=== PATIENT | female | born 1940 | race Caucasian/White ===

== ENCOUNTER → 2016-12-22 | Outpatient (CLI) | payer MEDICARE, BC ==
[~2016-12-22] MED LIST: ADVAIR HFA1 AER IH; ALBUTEROL0.83 MG/ML IH; AMBIEN 5MG TABLE5 MG PO; ASPIRIN 81M81 MG/TA2 PO; ASPIRIN E.C. 8181 MG PO; ATIVAN0.5 MG PO; AVAPRO150 MG PO; BROVANA15 MCG/2 M IH; BYSTOLIC5 MG PO; CALCIUM1 CAP PO; CALCIUM500 MG PO; CALTRATE-600 W600 MG PO; CARTIA XT180 MG PO; CELEXA40 MG PO; COZAAR 50MG50 MG/TAB PEG; CYMBALTA 30MG30 MG PO; CYMBALTA 60MG60 MG PO; DIOVAN80 MG PO; DISALCID PO; DYAZIDE 25 MG-31 CAP PO; FISH OIL CONC1000 MG PO; FISH OIL500 MG PO; FLEXERIL5 MG PO; FLONASE NASAL S16 GM NS; FLONASEALLERGY NS; FLOVENT HF0.044 MG/A IH; LINZESS290CAP; LIPITOR 10MG10 MG PO; LIPITOR 40MG TA40 MG PO; LIVALO2 MG PO; LYRICA 25MG CAP25 MG PO; MASON NATURAL1200 MG PO; MAXZIDE-25MG TA1 TAB PO; MILK OF MA400 MG/5 M PO; MUCINEX 60600 MG/TA1 PO; MULTIPLE VITAMI1 CTB PO; MVI; NORCO 325 MG-51 TAB PO; NORVASC 10MG10 MG PO; PRAVACHOL 40MG40 MG PO; PREDNISONE10 MG PO; PREDNISONE20 MG PO; PRILOSEC 20MG20 MG PO; PULMICORT R1 MG/2 ML IH; PYRIDIUM 100MG100 MG PO; SEPTRA DS 8001 TAB PO; SINGULAIR 110 MG/TAB PO; SINGULAIR10 MG PO; TRIAMTERENE/HCT1 CAP PO; TRIAMTERENE/HCT1 TAB PO; TUDORZA IH; VITAMIN B12; VITAMIN C500 MG PO; VITAMIN D1000 IU PO; VITAMIN D3400 IU PO; ZANTAC 150MG T150 MG PO; ZITHROMAX 250M250 MG PO; ZITHROMAX TRI-500 MG PO; ZOFRAN 4MG T4 MG/TAB PO; ZOFRAN ODT4 MG PO; ZOLPIDEM5 MG PO
== END ==
LOC: COL.RAD 09:33
DX: K76.0 Fatty (change of) liver, not elsewhere classified (principal); K82.4 Cholesterolosis of gallbladder

== ENCOUNTER → 2017-01-07 | Outpatient (CLI) | payer MEDICARE, BC | LOC: COL.RAD 08:55 | DX: R10.11 Right upper quadrant pain (principal); K59.09 Other constipation | CPT/HCPCS: A9537; J2805 ==

== ENCOUNTER 2017-03-23 19:04 | Emergency (ER) | payer MEDICARE, BC ==
[~2017-03-23] VITALS: Ht 154.9 cm; Wt 63.6 kg
[~2017-03-23 19:04] MED LIST changes: -LINZESS290CAP; -LIVALO2 MG PO; -PRILOSEC 20MG20 MG PO
[2017-03-23 19:06] VITALS: TEMP 98.6
[2017-03-23] MEDS ORDERED: LINZESS290CAP (19:27)
[2017-03-23] MEDS ORDERED: PRILOSEC 20MG20 MG PO (19:28)
[2017-03-23] MEDS ORDERED: LIVALO2 MG PO (19:28)
[2017-03-23] MEDS ORDERED: MAXZIDE-25MG TA1 TAB PO (19:29)
[2017-03-23 20:00] LABS: PH 6 (5-8); SQUAMOUS EPITHELIAL 0-2 /hpf; URINE APPEARANCE Clear; URINE BACTERIA None Seen /hpf; URINE BILIRUBIN Negative (NEGATIVE); URINE BLOOD Negative (NEGATIVE); URINE COLOR Yellow; URINE GLUCOSE 3+ (NEGATIVE); URINE KETONE Negative (NEGATIVE); URINE RBC 0-2 /hpf; URINE UROBILINOGEN Negative (NEGATIVE); URINE WBC 0-2 /hpf
[2017-03-23 20:11] LABS: BASO # 0.1 (0.0-0.2); BASO % 0.7 % (0.0-2.0); EOS # 0.1 (0.0-0.7); EOS % 0.7 % (0-4.0); GRAN % 58.7 % (42.2-75.2); HEMATOCRIT 44.4 % (37.0-47.0); HEMOGLOBIN 15.6 g/dl (12.5-16.0); LYMPH # 2.6 (1.2-3.4); LYMPH % 30.2 % (20.0-51.0); MEAN CELL VOLUME 90 fl (80.0-100.0); MEAN CORPUSCULAR HEMOGLOBIN 32 pg (27.0-31.0); MEAN CORPUSCULAR HGB CONC 35 g/dl (33.0-37.0); MEAN PLATELET VOLUME 10.4 fl (7.4-10.4); MONO # 0.8 (0.1-0.6); MONO % 9.2 % (1.7-9.3); PLATELET COUNT 327 K/mm3 (130-400); RED BLOOD COUNT 4.94 M/mm3 (4.10-5.30); REDCELL DISTRIBUTION WIDTH-CV 12.5 % (11.5-14.5); WHITE BLOOD COUNT 8.5 K/mm3 (4.8-10.8)
[2017-03-23 20:21] LABS: ADJUSTED CALCIUM 9.3 mg/dL (8.4-10.2); ALBUMIN 4.2 gm/dL (3.5-5.0); BILIRUBIN,TOTAL 0.8 mg/dL (0.0-1.0); CALCIUM 9.5 mg/dL (8.4-10.2); CREATININE, serum 0.76 mg/dL (0.52-1.25); POTASSIUM 3.7 mmol/L (3.4-5.0); TOTAL PROTEIN 7.5 gm/dL (6.4-8.2)
[2017-03-23] MEDS ORDERED: NORCO 325 MG-51 TAB PO (20:52)
[2017-03-23] MEDS ORDERED: ZOFRAN ODT4 MG PO (21:01)
[2017-03-23 21:17] VITALS: BP 176/94; PULSE 63
== END 2017-03-23 21:18 | disposition home or self-care (01) ==
LOC: COL.ER 19:04
PROVIDERS: Nurse Practitioner
DX: M54.41 Lumbago with sciatica, right side (principal); I10 Essential (primary) hypertension; J44.9 Chronic obstructive pulmonary disease, unspecified; J45.909 Unspecified asthma, uncomplicated; Z87.891 Personal history of nicotine dependence
CPT/HCPCS: J1170; J2405

== ENCOUNTER 2017-03-28 18:53 | Emergency (ER) | payer MEDICARE, BC ==
[~2017-03-28] VITALS: Ht 154.9 cm; Wt 63.6 kg
[~2017-03-28 18:53] MED LIST changes: +LINZESS290CAP; +LIVALO2 MG PO; +PRILOSEC 20MG20 MG PO
[2017-03-28 19:23] VITALS: BP 151/71; TEMP 97.6
[2017-03-28 21:45] VITALS: PULSE 61
== END 2017-03-28 21:46 | disposition home or self-care (01) ==
LOC: COL.ER 18:53
DX: M54.5 Low back pain (principal); M54.16 Radiculopathy, lumbar region; I10 Essential (primary) hypertension
CPT/HCPCS: J1170

== ENCOUNTER → 2017-06-21 | Outpatient (CLI) | payer MEDICARE, BC | LOC: MC.RAD 08:00 | DX: Z12.31 Encounter for screening mammogram for malignant neoplasm of breast (principal) ==

== ENCOUNTER → 2017-07-26 | Outpatient (CLI) | payer MEDICARE, BC | LOC: SUN.DIA 09:00 | DX: E11.9 Type 2 diabetes mellitus without complications (principal); E78.5 Hyperlipidemia, unspecified; I10 Essential (primary) hypertension; Z68.26 Body mass index [BMI] 26.0-26.9, adult; Z71.3 Dietary counseling and surveillance; Z87.891 Personal history of nicotine dependence | CPT/HCPCS: G0108 ==

== ENCOUNTER → 2017-08-10 | Outpatient (CLI) | payer MEDICARE, BC | LOC: SUN.DIA 13:14 | DX: E11.9 Type 2 diabetes mellitus without complications (principal); E78.5 Hyperlipidemia, unspecified; I10 Essential (primary) hypertension; Z68.26 Body mass index [BMI] 26.0-26.9, adult; Z71.3 Dietary counseling and surveillance; Z87.891 Personal history of nicotine dependence ==

== ENCOUNTER → 2017-11-16 | Outpatient (CLI) | payer MEDICARE, BC | LOC: SUN.DIA 08-25 10:22 | DX: E11.9 Type 2 diabetes mellitus without complications (principal); E78.5 Hyperlipidemia, unspecified; I10 Essential (primary) hypertension; Z68.25 Body mass index [BMI] 25.0-25.9, adult; Z71.3 Dietary counseling and surveillance; Z87.891 Personal history of nicotine dependence ==

== ENCOUNTER → 2018-03-08 | Outpatient (CLI) | payer MEDICARE, BC | LOC: SUN.DIA 08:36 | DX: E11.9 Type 2 diabetes mellitus without complications (principal); E78.5 Hyperlipidemia, unspecified; I10 Essential (primary) hypertension; Z68.25 Body mass index [BMI] 25.0-25.9, adult; Z71.3 Dietary counseling and surveillance; Z87.891 Personal history of nicotine dependence ==

== ENCOUNTER 2018-04-11 10:59 | Emergency (ER) | payer MEDICARE, BC ==
[2018-04-11 11:06] VITALS: TEMP 97.6
[2018-04-11] MEDS ORDERED: GLUCOPHAGE500 MG/TAB PO (11:34)
[2018-04-11] MEDS ORDERED: BROVANA15 MCG/2 M IH (11:36)
[2018-04-11] MEDS ORDERED: PULMICORT R1 MG/2 ML IH (11:36)
[2018-04-11 13:37] VITALS: BP 158/68; PULSE 48
== END 2018-04-11 13:37 | disposition home or self-care (01) ==
LOC: COL.ER 10:59
DX: S61.217A Laceration without foreign body of left little finger without damage to nail, initial encounter (principal); S20.211A Contusion of right front wall of thorax, initial encounter; R40.2412 Glasgow coma scale score 13-15, at arrival to emergency department; I10 Essential (primary) hypertension; Z23 Encounter for immunization; Z90.710 Acquired absence of both cervix and uterus; Z79.82 Long term (current) use of aspirin; Z79.84 Long term (current) use of oral hypoglycemic drugs; W17.89XA Other fall from one level to another, initial encounter; W25.XXXA Contact with sharp glass, initial encounter

== ENCOUNTER → 2018-04-22 | Outpatient (CLI) | payer MEDICARE, BC ==
[~2018-04-22] MED LIST changes: +GLUCOPHAGE500 MG/TAB PO
== END ==
LOC: COL.CARD 08:19
DX: R00.1 Bradycardia, unspecified (principal); R03.0 Elevated blood-pressure reading, without diagnosis of hypertension

== ENCOUNTER 2018-05-23 07:43 | Outpatient (CLI) | payer MEDICARE, BC ==
[~2018-05-23] VITALS: Ht 154.9 cm; Wt 61.0 kg
[2018-05-23 08:23] VITALS: BP 140/68; PULSE 48; TEMP 97.6
[2018-05-23] MEDS ORDERED: MAXZIDE-25MG TA1 TAB PO (08:34)
[2018-05-23] MEDS ORDERED: COLACE 100100 MG/CAP PO (08:35)
[2018-05-23] MEDS ORDERED: CEPHALEXIN500 M1 PO (10:05)
== END 2018-05-23 10:45 | disposition home or self-care (01) ==
LOC: COL.CAR 07:43
DX: I49.5 Sick sinus syndrome (principal); I10 Essential (primary) hypertension; J45.909 Unspecified asthma, uncomplicated; F32.9 Major depressive disorder, single episode, unspecified; M10.9 Gout, unspecified; E78.5 Hyperlipidemia, unspecified; G47.33 Obstructive sleep apnea (adult) (pediatric); M19.90 Unspecified osteoarthritis, unspecified site; I25.10 Atherosclerotic heart disease of native coronary artery without angina pectoris; I35.9 Nonrheumatic aortic valve disorder, unspecified; Z90.710 Acquired absence of both cervix and uterus; Z79.82 Long term (current) use of aspirin; Z79.84 Long term (current) use of oral hypoglycemic drugs; Z87.891 Personal history of nicotine dependence; Z82.3 Family history of stroke; Z82.49 Family history of ischemic heart disease and other diseases of the circulatory system
CPT/HCPCS: 27124; C1764

== ENCOUNTER → 2018-09-14 | Outpatient (CLI) | payer MEDICARE, BC ==
[~2018-09-14] MED LIST changes: +CEPHALEXIN500 M1 PO; +COLACE 100100 MG/CAP PO
== END ==
LOC: SUN.DIA 09-08 13:33
DX: E11.9 Type 2 diabetes mellitus without complications (principal); E78.5 Hyperlipidemia, unspecified; I10 Essential (primary) hypertension; F17.210 Nicotine dependence, cigarettes, uncomplicated

== ENCOUNTER 2018-10-27 15:48 | Emergency (ER) | payer MEDICARE, BC ==
[~2018-10-27] VITALS: Ht 154.9 cm; Wt 59.1 kg
[2018-10-27 15:50] VITALS: TEMP 98.1
[2018-10-27 16:43] LABS: BASO # 0.1 (0.0-0.2); EOS # 0.1 (0.0-0.7); EOS % 0.7 % (0-4.0); GRAN # 3.5 (1.4-6.5); GRAN % 49.5 % (42.2-75.2); HEMATOCRIT 41.4 % (37.0-47.0); HEMOGLOBIN 14.3 g/dl (12.5-16.0); LYMPH # 2.8 (1.2-3.4); LYMPH % 39.4 % (20.0-51.0); MEAN CELL VOLUME 92 fl (80.0-100.0); MEAN CORPUSCULAR HEMOGLOBIN 32 pg (27.0-31.0); MEAN CORPUSCULAR HGB CONC 35 g/dl (33.0-37.0); MEAN PLATELET VOLUME 10.4 fl (7.4-10.4); MONO # 0.7 (0.1-0.6); MONO % 9.3 % (1.7-9.3); PLATELET COUNT 307 K/mm3 (130-400); REDCELL DISTRIBUTION WIDTH-CV 12.4 % (11.5-14.5)
[2018-10-27 16:45] LABS: PROTHROMBIN TIME 11.3 SECONDS (9.7-12.8)
[2018-10-27 16:49] LABS: ALANINE AMINOTRANSFERASE 23 U/L (9-52); ALBUMIN 4.2 gm/dL (3.5-5.0); ALKALINE PHOSPHATASE 89 U/L (50-136); ANION GAP 8 mmol/L (7-16); AST,SGOT 25 U/L (15-37); BILIRUBIN,TOTAL 0.4 mg/dL (0.0-1.0); BLOOD UREA NITROGEN 19 mg/dL (7-17); CARBON DIOXIDE 30 mmol/L (22-30); CHLORIDE 108 mmol/L (98-107); CREATININE, serum 0.92 mg/dL (0.52-1.25); GLUCOSE 108 mg/dL (74-106); POTASSIUM 4.4 mmol/L (3.4-5.0); SODIUM 145 mmol/L (137-145); TOTAL PROTEIN 7.3 gm/dL (6.4-8.2)
[2018-10-27] MEDS ORDERED: TUDORZA IH (16:51)
[2018-10-27 17:00] LABS: TROPONIN-I < 0.012 ng/mL (0.000-0.034)
[2018-10-27 19:34] VITALS: BP 105/74; PULSE 44
== END 2018-10-27 20:08 | disposition home or self-care (01) ==
LOC: COL.ER 15:48
PROVIDERS: Emergency Medicine
DX: R07.89 Other chest pain (principal); F41.9 Anxiety disorder, unspecified; E78.5 Hyperlipidemia, unspecified; E11.9 Type 2 diabetes mellitus without complications; I10 Essential (primary) hypertension; Z90.710 Acquired absence of both cervix and uterus; Z79.82 Long term (current) use of aspirin; Z79.84 Long term (current) use of oral hypoglycemic drugs
CPT/HCPCS: J2060; J7040

== ENCOUNTER 2019-02-25 17:47 | Emergency (ER) | payer MEDICARE, BC ==
[~2019-02-25] VITALS: Ht 154.9 cm; Wt 61.8 kg
[2019-02-25 17:50] VITALS: BP 117/64; TEMP 96.4
[2019-02-25 19:14] LABS: BASO # 0.1 (0.0-0.2); BASO % 0.7 % (0.0-2.0); EOS # 0.2 (0.0-0.7); GRAN # 4.2 (1.4-6.5); GRAN % 54.7 % (42.2-75.2); HEMOGLOBIN 12.5 g/dl (12.5-16.0); LYMPH # 2.6 (1.2-3.4); LYMPH % 33.2 % (20.0-51.0); MEAN CELL VOLUME 91 fl (80.0-100.0); MEAN CORPUSCULAR HEMOGLOBIN 31 pg (27.0-31.0); MEAN CORPUSCULAR HGB CONC 34 g/dl (33.0-37.0); MEAN PLATELET VOLUME 9.9 fl (7.4-10.4); MONO # 0.7 (0.1-0.6); MONO % 9.1 % (1.7-9.3); PLATELET COUNT 356 K/mm3 (130-400); RED BLOOD COUNT 4.02 M/mm3 (4.10-5.30); REDCELL DISTRIBUTION WIDTH-CV 12.7 % (11.5-14.5)
[2019-02-25 19:15] LABS: HEMATOCRIT 36.4 % (37.0-47.0)
[2019-02-25 19:26] LABS: ALBUMIN 3.7 gm/dL (3.5-5.0); BILIRUBIN,TOTAL 0.3 mg/dL (0.0-1.0); C-REACTIVE PROTEIN 4.9 mg/dL (0.0-0.9); CALCIUM 9.7 mg/dL (8.4-10.2); CREATININE, serum 1.29 (0.52-1.25); POTASSIUM 3.8 mmol/L (3.4-5.0); TOTAL PROTEIN 6.8 gm/dL (6.4-8.2)
[2019-02-25 19:28] LABS: COLLECTION METHOD CLEAN CATCH
[2019-02-25 19:47] LABS: PH 5 (5-8); SQUAMOUS EPITHELIAL 0-2 /hpf; URINE APPEARANCE Clear; URINE BACTERIA None Seen /hpf; URINE BILIRUBIN Negative (NEGATIVE); URINE BLOOD Negative (NEGATIVE); URINE COLOR Yellow; URINE GLUCOSE Negative (NEGATIVE); URINE KETONE Negative (NEGATIVE); URINE LEUKOCYTE ESTERASE Trace (NEGATIVE); URINE NITRATE Negative (NEGATIVE); URINE PROTEIN(semi-quant) Negative (NEGATIVE); URINE RBC 0-2 /hpf; URINE UROBILINOGEN Negative (NEGATIVE)
[2019-02-25 20:18] VITALS: PULSE 56
== END 2019-02-25 20:18 | disposition home or self-care (01) ==
LOC: COL.ER 17:47
PROVIDERS: Emergency Medicine
DX: M25.552 Pain in left hip (principal); E11.9 Type 2 diabetes mellitus without complications; I10 Essential (primary) hypertension; J44.9 Chronic obstructive pulmonary disease, unspecified; Z79.82 Long term (current) use of aspirin; Z79.84 Long term (current) use of oral hypoglycemic drugs; W18.30XD Fall on same level, unspecified, subsequent encounter

== ENCOUNTER → 2019-03-14 | Outpatient (CLI) | payer MEDICARE, BC | LOC: SUN.DIA 08:48 | DX: E11.9 Type 2 diabetes mellitus without complications (principal); E78.5 Hyperlipidemia, unspecified; I10 Essential (primary) hypertension | CPT/HCPCS: G0270 ==

== ENCOUNTER 2019-05-29 15:47 | Outpatient (CLI) | payer MEDICARE, BC ==
[~2019-05-29] VITALS: Ht 154.9 cm; Wt 59.3 kg
[2019-05-29 16:03] VITALS: BP 114/60; PULSE 66; TEMP 97.5
== END 2019-05-29 16:03 | disposition home or self-care (01) ==
LOC: EUO 15:47
DX: M81.0 Age-related osteoporosis without current pathological fracture (principal)
CPT/HCPCS: J0897

== ENCOUNTER → 2019-08-23 | Outpatient (CLI) | payer MEDICARE, BC | LOC: DIA.ED 08:00 | DX: E11.9 Type 2 diabetes mellitus without complications (principal); E78.5 Hyperlipidemia, unspecified; I10 Essential (primary) hypertension | CPT/HCPCS: G0463 ==

== ENCOUNTER → 2019-09-12 | Outpatient (CLI) | payer MEDICARE, BC | LOC: DIA.ED 08:32 | DX: E11.9 Type 2 diabetes mellitus without complications (principal); E78.5 Hyperlipidemia, unspecified; I10 Essential (primary) hypertension | CPT/HCPCS: G0270 ==

== ENCOUNTER 2019-11-30 14:27 | Outpatient (CLI) | payer MEDICARE, BC ==
[~2019-11-30] VITALS: Ht 154.9 cm; Wt 62.2 kg
[~2019-11-30 14:27] MED LIST changes: -LIVALO2 MG PO; +LIVALO4 MG PO; -LYRICA 25MG CAP25 MG PO; +LYRICA 75MG CAP75 MG PO
[2019-11-30 15:26] VITALS: BP 128/73; PULSE 66; TEMP 98.4
== END 2019-11-30 21:00 | disposition home or self-care (01) ==
LOC: EUO 14:27
DX: M81.0 Age-related osteoporosis without current pathological fracture (principal); Z79.899 Other long term (current) drug therapy
CPT/HCPCS: J0897

== ENCOUNTER → 2019-12-14 | Outpatient (CLI) | payer MEDICARE, BC | LOC: COL.RAD 12:32 | DX: R10.12 Left upper quadrant pain (principal) | CPT/HCPCS: Q9967 ==

== ENCOUNTER 2019-12-24 09:09 | Emergency (ER) | payer MEDICARE, BC ==
[~2019-12-24] VITALS: Ht 154.9 cm; Wt 60.0 kg
[2019-12-24] MEDS ORDERED: ULTRAM 50MG TAB50 MG PO (10:06)
[2019-12-24 11:19] LABS: ALANINE AMINOTRANSFERASE 17 U/L (9-52); ALBUMIN 4.8 gm/dL (3.5-5.0); ALKALINE PHOSPHATASE 89 U/L (50-136); ANION GAP 12 mmol/L (7-16); AST,SGOT 33 U/L (15-37); BILIRUBIN,TOTAL 0.7 mg/dL (0.0-1.0); BLOOD UREA NITROGEN 20 mg/dL (7-17); CARBON DIOXIDE 27 mmol/L (22-30); CHLORIDE 104 mmol/L (98-107); CREATININE, serum 0.96 (0.52-1.25); GLUCOSE 117 mg/dL (74-106); LIPASE 143 U/L (23-300); POTASSIUM 4.2 mmol/L (3.4-5.0); SODIUM 144 mmol/L (137-145); TOTAL PROTEIN 8.5 gm/dL (6.4-8.2)
[2019-12-24 11:27] LABS: BASO % 0.5 % (0.0-2.0); EOS % 0.7 % (0-4.0); GRAN # 2.9 (1.4-6.5); GRAN % 51.7 % (42.2-75.2); HEMATOCRIT 45.9 % (37.0-47.0); HEMOGLOBIN 15.3 g/dl (12.5-16.0); LYMPH # 1.9 (1.2-3.4); LYMPH % 34.5 % (20.0-51.0); MEAN CELL VOLUME 91 fl (80.0-100.0); MEAN CORPUSCULAR HEMOGLOBIN 30 pg (27.0-31.0); MEAN CORPUSCULAR HGB CONC 33 g/dl (33.0-37.0); MEAN PLATELET VOLUME 10.5 fl (7.4-10.4); MONO # 0.7 (0.1-0.6); MONO % 12.2 % (1.7-9.3); PLATELET COUNT 263 K/mm3 (130-400); RED BLOOD COUNT 5.03 M/mm3 (4.10-5.30); REDCELL DISTRIBUTION WIDTH-CV 13.1 % (11.5-14.5)
[2019-12-24 11:29] LABS: TROPONIN-I < 0.012 ng/mL (0.000-0.035)
[2019-12-24 11:39] LABS: COLLECTION METHOD CLEAN CATCH
[2019-12-24 11:59] LABS: MUCOUS Present /lpf; PH 6 (5-8); URINE APPEARANCE Hazy; URINE BACTERIA None Seen /hpf; URINE BILIRUBIN Negative (NEGATIVE); URINE BLOOD Negative (NEGATIVE); URINE COLOR Yellow; URINE GLUCOSE Negative (NEGATIVE); URINE KETONE Trace (NEGATIVE); URINE LEUKOCYTE ESTERASE Negative (NEGATIVE); URINE NITRATE Negative (NEGATIVE); URINE PROTEIN(semi-quant) Negative (NEGATIVE); URINE RBC 0-2 /hpf; URINE UROBILINOGEN Negative (NEGATIVE)
[2019-12-24] MEDS ORDERED: DOXYCYCLINE 10100 MG PO (13:35)
[2019-12-24] MEDS ORDERED: PREDNISONE20 MG PO (13:35)
[2019-12-24] MEDS ORDERED: IPRATROPIUM BROM3 M1 IH (13:35)
[2019-12-24 15:05] VITALS: BP 132/77; PULSE 74; TEMP 97
== END 2019-12-24 15:04 | disposition home or self-care (01) ==
LOC: COL.ER 09:09
PROVIDERS: Emergency Medicine
DX: J20.9 Acute bronchitis, unspecified (principal); E11.9 Type 2 diabetes mellitus without complications; J44.9 Chronic obstructive pulmonary disease, unspecified; Z79.82 Long term (current) use of aspirin; Z79.84 Long term (current) use of oral hypoglycemic drugs
CPT/HCPCS: J7030; J7512

== ENCOUNTER 2019-12-30 11:26 | Emergency (ER) | payer MEDICARE, BC ==
[~2019-12-30] VITALS: Ht 154.9 cm; Wt 58.0 kg
[~2019-12-30 11:26] MED LIST changes: +DOXYCYCLINE 10100 MG PO; +IPRATROPIUM BROM3 M1 IH; +ULTRAM 50MG TAB50 MG PO
[2019-12-30 11:54] VITALS: TEMP 96.2
[2019-12-30 13:13] LABS: HEMATOCRIT 42.5 % (37.0-47.0); HEMOGLOBIN 14.5 g/dl (12.5-16.0); MEAN CELL VOLUME 90 fl (80.0-100.0); MEAN CORPUSCULAR HEMOGLOBIN 31 pg (27.0-31.0); MEAN CORPUSCULAR HGB CONC 34 g/dl (33.0-37.0); MEAN PLATELET VOLUME 10.2 fl (7.4-10.4); PLATELET COUNT 380 K/mm3 (130-400); RED BLOOD COUNT 4.75 M/mm3 (4.10-5.30); REDCELL DISTRIBUTION WIDTH-CV 13.2 % (11.5-14.5)
[2019-12-30 13:43] LABS: ARTERIAL BLD GAS O2 SATURATION 93.4 % (92-100); ARTERIAL BLOOD GAS BASE EXCESS -4.3 (-2-2); ARTERIAL BLOOD GAS HCO3 18.2 meq/L (22-26); ARTERIAL BLOOD GAS PCO2 27.3 mmHg (35-45); ARTERIAL BLOOD GAS PO2 65.1 mmHg (80-100); ARTERIAL BLOOD GAS pH 7.44 (7.35-7.45)
[2019-12-30 14:06] LABS: BAND 1 % (0-10); LYMPHOCYTE 15 % (20.0-51.0); NEUTROPHILS 77 % (42.0-75.2)
[2019-12-30 14:07] LABS: PLATELET ESTIMATE NORMAL (NORMAL)
[2019-12-30 14:41] LABS: ALBUMIN 4.3 gm/dL (3.5-5.0); BILIRUBIN,TOTAL 0.5 mg/dL (0.0-1.0); CALCIUM 10.5 mg/dL (8.4-10.2); CREATININE, serum 1.07 (0.52-1.25); POTASSIUM 4.4 mmol/L (3.4-5.0); TOTAL PROTEIN 7.3 gm/dL (6.4-8.2)
[2019-12-30 14:48] LABS: COLLECTION METHOD CLEAN CATCH
[2019-12-30 14:56] LABS: PH 5 (5-8); SQUAMOUS EPITHELIAL 0-2 /hpf; URINE APPEARANCE Clear; URINE BACTERIA None Seen /hpf; URINE BILIRUBIN Negative (NEGATIVE); URINE BLOOD Negative (NEGATIVE); URINE COLOR Yellow; URINE GLUCOSE Negative (NEGATIVE); URINE KETONE Negative (NEGATIVE); URINE LEUKOCYTE ESTERASE Negative (NEGATIVE); URINE NITRATE Negative (NEGATIVE); URINE PROTEIN(semi-quant) Negative (NEGATIVE); URINE RBC None Seen /hpf; URINE UROBILINOGEN Negative (NEGATIVE)
[2019-12-30 15:49] LABS: TROPONIN-I < 0.012 ng/mL (0.000-0.035)
[2019-12-30] MEDS ORDERED: NEXIUM 20MG20 MG PO (17:01)
[2019-12-30] MEDS ORDERED: ZOFRAN 4MG T4 MG/TAB PO (17:02)
[2019-12-30 17:08] VITALS: BP 105/80; PULSE 76
== END 2019-12-30 17:10 | disposition home or self-care (01) ==
LOC: COL.ER 11:26
PROVIDERS: Emergency Medicine; Family Medicine
DX: J44.9 Chronic obstructive pulmonary disease, unspecified (principal); K29.70 Gastritis, unspecified, without bleeding; I10 Essential (primary) hypertension; Z79.82 Long term (current) use of aspirin; Z95.2 Presence of prosthetic heart valve
CPT/HCPCS: J2405; J7040; Q9967

== ENCOUNTER → 2020-02-12 | Outpatient (CLI) | payer MEDICARE, BC ==
[~2020-02-12] MED LIST changes: +NEXIUM 20MG20 MG PO
== END ==
LOC: COL.RAD 07:56
DX: K30 Functional dyspepsia (principal); K59.00 Constipation, unspecified
CPT/HCPCS: A9541

== ENCOUNTER 2020-03-08 08:45 | Emergency (ER) | payer MEDICARE, BC ==
[~2020-03-08] VITALS: Ht 154.9 cm; Wt 61.4 kg
[2020-03-08 08:56] VITALS: TEMP 97.6
[2020-03-08 09:42] LABS: COLLECTION METHOD CLEAN CATCH
[2020-03-08 09:48] LABS: BASO # 0.1 (0.0-0.2); BASO % 1.1 % (0.0-2.0); EOS # 0.1 (0.0-0.7); EOS % 0.9 % (0-4.0); HEMATOCRIT 45.2 % (37.0-47.0); HEMOGLOBIN 15.3 g/dl (12.5-16.0); LYMPH # 3.5 (1.2-3.4); LYMPH % 37.2 % (20.0-51.0); MEAN CELL VOLUME 92 fl (80.0-100.0); MEAN CORPUSCULAR HEMOGLOBIN 31 pg (27.0-31.0); MEAN CORPUSCULAR HGB CONC 34 g/dl (33.0-37.0); MONO # 0.7 (0.1-0.6); MONO % 7.3 % (1.7-9.3); PLATELET COUNT 340 K/mm3 (130-400); RED BLOOD COUNT 4.89 M/mm3 (4.10-5.30); REDCELL DISTRIBUTION WIDTH-CV 13.3 % (11.5-14.5)
[2020-03-08 09:52] LABS: PH 5 (5-8); SQUAMOUS EPITHELIAL None Seen /hpf; URINE APPEARANCE Clear; URINE BACTERIA None Seen /hpf; URINE BILIRUBIN Negative (NEGATIVE); URINE BLOOD Negative (NEGATIVE); URINE COLOR Yellow; URINE GLUCOSE Negative (NEGATIVE); URINE KETONE Negative (NEGATIVE); URINE LEUKOCYTE ESTERASE Negative (NEGATIVE); URINE NITRATE Negative (NEGATIVE); URINE PROTEIN(semi-quant) Negative (NEGATIVE); URINE RBC 0-2 /hpf; URINE UROBILINOGEN Negative (NEGATIVE)
[2020-03-08 09:52] LABS: INR 0.9 (0.8-3.0)
[2020-03-08 10:02] LABS: ALANINE AMINOTRANSFERASE 23 U/L (4-34); ALBUMIN 4.8 gm/dL (3.5-5.0); ALKALINE PHOSPHATASE 77 U/L (50-136); ANION GAP 9 mmol/L (7-16); AST,SGOT 26 U/L (15-37); BILIRUBIN,TOTAL 0.7 mg/dL (0.0-1.0); BLOOD UREA NITROGEN 27 mg/dL (7-17); CALCIUM 9.9 mg/dL (8.4-10.2); CARBON DIOXIDE 28 mmol/L (22-30); CHLORIDE 105 mmol/L (98-107); CREATININE, serum 0.97 (0.52-1.25); GLUCOSE 134 mg/dL (74-106); POTASSIUM 3.6 mmol/L (3.4-5.0); SODIUM 142 mmol/L (137-145)
[2020-03-08 10:18] LABS: TROPONIN-I < 0.012 ng/mL (0.000-0.035)
[2020-03-08 10:43] VITALS: BP 117/67; PULSE 47
== END 2020-03-08 10:43 | disposition home or self-care (01) ==
LOC: COL.ER 08:45
PROVIDERS: Emergency Medicine
DX: R42 Dizziness and giddiness (principal); I25.10 Atherosclerotic heart disease of native coronary artery without angina pectoris; Z90.710 Acquired absence of both cervix and uterus; Z87.891 Personal history of nicotine dependence; Z79.82 Long term (current) use of aspirin; Z79.84 Long term (current) use of oral hypoglycemic drugs
CPT/HCPCS: J7030

== ENCOUNTER 2020-07-04 14:34 | Outpatient (CLI) | payer MEDICARE, BC ==
[~2020-07-04] VITALS: Ht 154.9 cm; Wt 60.4 kg
[2020-07-04 17:45] VITALS: BP 95/57; PULSE 55; TEMP 98
== END 2020-07-04 15:40 | disposition home or self-care (01) ==
LOC: EUO 14:34
DX: M81.0 Age-related osteoporosis without current pathological fracture (principal)
CPT/HCPCS: J0897

== ENCOUNTER 2020-10-10 14:50 | Emergency (ER) | payer MEDICARE, BC ==
[~2020-10-10] VITALS: Ht 154.9 cm; Wt 59.1 kg
[2020-10-10 15:05] VITALS: TEMP 97.8
[2020-10-10 15:52] LABS: BASO % 0.2 % (0.0-2.0); GRAN # 11.9 (1.4-6.5); GRAN % 82.8 % (42.2-75.2); HEMATOCRIT 37.9 % (37.0-47.0); HEMOGLOBIN 12.8 g/dl (12.5-16.0); LYMPH # 1.5 (1.2-3.4); LYMPH % 10.2 % (20.0-51.0); MEAN CELL VOLUME 91 fl (80.0-100.0); MEAN CORPUSCULAR HEMOGLOBIN 31 pg (27.0-31.0); MEAN CORPUSCULAR HGB CONC 34 g/dl (33.0-37.0); MEAN PLATELET VOLUME 10.4 fl (7.4-10.4); MONO # 0.9 (0.1-0.6); MONO % 6.1 % (1.7-9.3); PLATELET COUNT 319 K/mm3 (130-400); RED BLOOD COUNT 4.18 M/mm3 (4.10-5.30); REDCELL DISTRIBUTION WIDTH-CV 13.1 % (11.5-14.5)
[2020-10-10 16:19] LABS: ALANINE AMINOTRANSFERASE 17 U/L (4-34); ALBUMIN 4.3 gm/dL (3.5-5.0); ALKALINE PHOSPHATASE 69 U/L (50-136); ANION GAP 8 mmol/L (7-16); AST,SGOT 27 U/L (15-37); BILIRUBIN,TOTAL 0.5 mg/dL (0.0-1.0); BLOOD UREA NITROGEN 21 mg/dL (7-17); CALCIUM 9.9 mg/dL (8.4-10.2); CARBON DIOXIDE 23 mmol/L (22-30); CHLORIDE 109 mmol/L (98-107); GLUCOSE 155 mg/dL (74-106); LIPASE 83 U/L (23-300); POTASSIUM 4.4 mmol/L (3.4-5.0); SODIUM 140 mmol/L (137-145); TOTAL PROTEIN 7.3 gm/dL (6.4-8.2)
[2020-10-10 16:23] LABS: C-REACTIVE PROTEIN < 0.5 mg/dL (0.0-0.9)
[2020-10-10] MEDS ORDERED: ZOFRAN ODT4 MG PO (17:41)
[2020-10-10 18:00] VITALS: BP 172/68; PULSE 67
== END 2020-10-10 18:05 | disposition home or self-care (01) ==
LOC: COL.ER 14:50
PROVIDERS: Nurse Practitioner
DX: R11.2 Nausea with vomiting, unspecified (principal); R51.9 Headache, unspecified; R19.7 Diarrhea, unspecified; I10 Essential (primary) hypertension; M79.7 Fibromyalgia; E11.9 Type 2 diabetes mellitus without complications; Z20.828 Contact with and (suspected) exposure to other viral communicable diseases; Z79.52 Long term (current) use of systemic steroids; Z79.84 Long term (current) use of oral hypoglycemic drugs
CPT/HCPCS: J2405; J7030

== ENCOUNTER → 2020-12-17 | Outpatient (CLI) | payer MEDICARE, BC | LOC: COL.RAD 10:37 | DX: K22.4 Dyskinesia of esophagus (principal); K21.9 Gastro-esophageal reflux disease without esophagitis ==

== ENCOUNTER 2021-01-21 13:13 | Outpatient (CLI) | payer MEDICARE, BC ==
[~2021-01-21] VITALS: Ht 154.9 cm; Wt 58.5 kg
[~2021-01-21 13:13] MED LIST changes: +PRIL40 PO; -PRILOSEC 20MG20 MG PO
[2021-01-21 13:40] VITALS: BP 110/78; PULSE 68; TEMP 98.7
[2021-01-21] MEDS ORDERED: BENTYL 10MG10 MG/CAP PO (17:02)
[2021-01-21] MEDS ORDERED: 00186-0370-20 IH (17:02)
[2021-01-21] MEDS ORDERED: BENADRYL ALLERG25 M2 PO (17:03)
[2021-01-21] MEDS ORDERED: DULCOLAX STOOL100 MG PO (17:07)
== END 2021-01-21 17:10 | disposition home or self-care (01) ==
LOC: EUO 13:13
DX: M81.0 Age-related osteoporosis without current pathological fracture (principal)
CPT/HCPCS: J0897

== ENCOUNTER 2021-03-10 08:12 | Day surgery (SDC) | payer MEDICARE, BC ==
[2021-03-10] VITALS (9 sets, daily range): BP systolic 123–197; BP diastolic 56–74; PULSE 43–64; TEMP 97.6–98.3
[~2021-03-10] VITALS: Ht 154.9 cm; Wt 59.6 kg
[~2021-03-10 08:12] MED LIST changes: +00186-0370-20 IH; +BENADRYL ALLERG25 M2 PO; +BENTYL 10MG10 MG/CAP PO; +DULCOLAX STOOL100 MG PO
[2021-03-10 09:12] LABS: HEMATOCRIT 37.9 % (37.0-47.0); HEMOGLOBIN 12.8 g/dl (12.5-16.0); MEAN CELL VOLUME 91 fl (80.0-100.0); MEAN CORPUSCULAR HEMOGLOBIN 31 pg (27.0-31.0); MEAN CORPUSCULAR HGB CONC 34 g/dl (33.0-37.0); MEAN PLATELET VOLUME 10.1 fl (7.4-10.4); PLATELET COUNT 271 K/mm3 (130-400); PROTHROMBIN TIME 11.5 SECONDS (9.7-12.8); RED BLOOD COUNT 4.18 M/mm3 (4.10-5.30); REDCELL DISTRIBUTION WIDTH-CV 13.2 % (11.5-14.5)
[2021-03-10] MEDS ORDERED: EPA FISH OIL1 SGL PO (09:32)
[2021-03-10 09:33] LABS: CALCIUM 8.9 mg/dL (8.4-10.2); CREATININE, serum 0.88 (0.52-1.25); POTASSIUM 3.7 mmol/L (3.4-5.0)
[2021-03-10] MEDS ORDERED: 00186-0370-20 IH (09:34)
[2021-03-10] MEDS ORDERED: TYLENOL 325MG325 MG PO (09:35)
[2021-03-10] MEDS ORDERED: ZYRTEC 10MG10 MG PO (09:35)
--- NOTE | 2021-03-10 10:14 | NUR ---
Initial visit; Patient thanked Records Officer for offering encouragement and prayer prior to her surgical procedure. Records Officer offered God's blessings for Hilaria and her son.
--- NOTE | 2021-03-10 12:00 | NUR ---
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 Dressings x 2 over left chest CDI. Saline lock IV to left forearm without s/s of complications. POC reviewed with pt and pt's son. No further needs reported. Call light in reach.
--- NOTE | 2021-03-10 18:40 | NUR ---
Report to ALEX Nash. Pt sitting up by window, reports decrease in RAMAN after drinking coffee and eating dinner. Pt's daughter visiting. No further needs reported. Call light in reach.
--- NOTE | 2021-03-11 01:08 | NUR ---
Patient A/O x4. Patient reports some soreness to left upper chest pace maker incision site. Left upper chest incision site x2 dressing C/D/I. Left arm sling in place. Ice-pack to left upper chest. BP was 197/74, HR 58 around 20:30 pm tonight. Patient reports some headache at this time. Paged Davi Pulliam and Dr. Rishabh Boyce both at the same time. Received verbal order from Davi Pulliam to give Toprol XL 50mg PO one dose. Toprol XL 50mg given per order. Received verbal order from Dr. Carli Bowser to give Hydralazine 10mg IV PRN for SBP >180. BP recheck after 30 minutes of Toprol XL was still high at 197/78, HR 60. PRN Hydralazine 10mg IV given per order for SBP >180. BP recheck was 151/56, HR 60 at 23:30 pm. Call light within reach. Will continue to monitor for any changes in condition.
[2021-03-11 04:26] VITALS: BP 155/51; PULSE 62; TEMP 98.2
--- NOTE | 2021-03-11 06:07 | NUR ---
Patient reports her headache feeling much better this morning. BP 155/51 this morning. No acute distress noted at this time. Call light within reach. Will continue to monitor.
[2021-03-11 08:04] LABS: BASO # 0.1 (0.0-0.2); BASO % 0.7 % (0.0-2.0); EOS % 0.3 % (0-4.0); GRAN # 5.8 (1.4-6.5); GRAN % 65.3 % (42.2-75.2); HEMATOCRIT 41.8 % (37.0-47.0); LYMPH # 2.2 (1.2-3.4); LYMPH % 24.8 % (20.0-51.0); MEAN CELL VOLUME 91 fl (80.0-100.0); MEAN CORPUSCULAR HEMOGLOBIN 31 pg (27.0-31.0); MEAN CORPUSCULAR HGB CONC 34 g/dl (33.0-37.0); MEAN PLATELET VOLUME 10.1 fl (7.4-10.4); MONO # 0.7 (0.1-0.6); MONO % 8.3 % (1.7-9.3); PLATELET COUNT 319 K/mm3 (130-400); RED BLOOD COUNT 4.58 M/mm3 (4.10-5.30); REDCELL DISTRIBUTION WIDTH-CV 13.3 % (11.5-14.5)
[2021-03-11 08:13] LABS: CALCIUM 9.2 mg/dL (8.4-10.2); CREATININE, serum 0.81 (0.52-1.25); MAGNESIUM 2.1 mg/dL (1.6-2.3); POTASSIUM 3.7 mmol/L (3.4-5.0)
[2021-03-11 08:37] VITALS: BP 129/47; PULSE 62; TEMP 98
[2021-03-11] MEDS ORDERED: CEPHALEXIN500 M1 PO (09:10)
[2021-03-11] MEDS ORDERED: TOPROL XL 50MG50 MG PO (09:11)
--- NOTE | 2021-03-11 10:15 | NUR ---
Follow-up visit; Patient thanked Ream Cutter for looking in on her since her surgical procedure. Ream Cutter offered God's blessings and a get well message.
--- NOTE | 2021-03-11 11:45 | NUR ---
PT DENIED DISCOMFORT OR PAIN THIS AM, DID NOT FEEL LIKE EATING MUCH FOR BREAKFAST. WAS STARTED ON SOME METOPROLOL AND ABX FOR DISCHARGE AND WAS OKAY'D FOR DISCHARGE BY DR. MARY. DISCHARGE INSTRUCTIONS REVIEWED WITH PT AND ANY QUESTIONS ANSWERED. THIS NURSE ASSISTED BY DOWN TO CAR WITH DAUGHTER IN LAW VIA AND WAS BUCKELED IN FOR RIDE HOME.
== END 2021-03-11 10:45 | disposition home or self-care (01) ==
LOC: COL.CAR 08:12 → MEDICAL 12:14 → COL.CAR 03-11 10:45
PROVIDERS: Internal Medicine Cardiovascular Disease
DX: I49.5 Sick sinus syndrome (principal); I47.1 Supraventricular tachycardia; I25.10 Atherosclerotic heart disease of native coronary artery without angina pectoris; I10 Essential (primary) hypertension; E78.5 Hyperlipidemia, unspecified; J45.909 Unspecified asthma, uncomplicated; G47.33 Obstructive sleep apnea (adult) (pediatric); M47.817 Spondylosis without myelopathy or radiculopathy, lumbosacral region; E78.2 Mixed hyperlipidemia; M19.90 Unspecified osteoarthritis, unspecified site; B26.9 Mumps without complication; B05.9 Measles without complication; M10.9 Gout, unspecified; F32.9 Major depressive disorder, single episode, unspecified; Z90.710 Acquired absence of both cervix and uterus; Z95.0 Presence of cardiac pacemaker; Z90.89 Acquired absence of other organs; Z79.899 Other long term (current) drug therapy; Z88.6 Allergy status to analgesic agent; Z88.8 Allergy status to other drugs, medicaments and biological substances; Z79.84 Long term (current) use of oral hypoglycemic drugs; Z87.891 Personal history of nicotine dependence; Z82.3 Family history of stroke; Z80.9 Family history of malignant neoplasm, unspecified
CPT/HCPCS: OP; C1769; C1785; C1894; C1898; J0360; J0690; J2250; J3010; J7030

== ENCOUNTER 2021-06-15 10:44 | Emergency (ER) | payer MEDICARE, BC ==
[~2021-06-15] VITALS: Ht 154.9 cm; Wt 60.0 kg
[~2021-06-15 10:44] MED LIST changes: +EPA FISH OIL1 SGL PO; +TOPROL XL 50MG50 MG PO; +TYLENOL 325MG325 MG PO; +ZYRTEC 10MG10 MG PO
[2021-06-15 11:37] LABS: BASO # 0.1 (0.0-0.2); BASO % 1.2 % (0.0-2.0); EOS # 0.1 (0.0-0.7); EOS % 1.2 % (0-4.0); GRAN # 3.7 (1.4-6.5); GRAN % 54.2 % (42.2-75.2); HEMATOCRIT 41.1 % (37.0-47.0); HEMOGLOBIN 13.5 g/dl (12.5-16.0); LYMPH # 2.4 (1.2-3.4); LYMPH % 35.2 % (20.0-51.0); MEAN CELL VOLUME 96 fl (80.0-100.0); MEAN CORPUSCULAR HEMOGLOBIN 31 pg (27.0-31.0); MEAN CORPUSCULAR HGB CONC 33 g/dl (33.0-37.0); MONO # 0.5 (0.1-0.6); MONO % 7.6 % (1.7-9.3); PLATELET COUNT 260 K/mm3 (130-400); REDCELL DISTRIBUTION WIDTH-CV 13.6 % (11.5-14.5)
[2021-06-15 11:47] LABS: BILIRUBIN,TOTAL 0.5 mg/dL (0.0-1.0); CALCIUM 9.2 mg/dL (8.4-10.2); CREATININE, serum 0.93 (0.52-1.25); POTASSIUM 4.9 mmol/L (3.4-5.0); TOTAL PROTEIN 7.3 gm/dL (6.4-8.2)
[2021-06-15] MEDS ORDERED: PREDNISONE20 MG PO (12:59)
[2021-06-15] MEDS ORDERED: ZITHROMAX Z PA250 MG PO (12:59)
[2021-06-15 13:00] VITALS: BP 174/72; PULSE 59; TEMP 97.4
== END 2021-06-15 13:20 | disposition home or self-care (01) ==
LOC: COL.ER 10:44
PROVIDERS: Family Medicine
DX: J20.9 Acute bronchitis, unspecified (principal); J44.9 Chronic obstructive pulmonary disease, unspecified; Z87.891 Personal history of nicotine dependence; Z79.899 Other long term (current) drug therapy; Z79.51 Long term (current) use of inhaled steroids; Z20.822 Contact with and (suspected) exposure to COVID-19
CPT/HCPCS: J2930

== ENCOUNTER 2021-07-29 14:57 | Outpatient (CLI) | payer MEDICARE, BC ==
[~2021-07-29] VITALS: Ht 154.9 cm; Wt 60.3 kg
[~2021-07-29 14:57] MED LIST changes: +ZITHROMAX Z PA250 MG PO
[2021-07-29] MEDS ORDERED: MAXZIDE-25MG TA1 TAB PO (15:15)
[2021-07-29 15:19] VITALS: BP 89/62; PULSE 59; TEMP 98.3
== END 2021-07-29 16:00 | disposition home or self-care (01) ==
LOC: EUO 14:57
DX: M81.0 Age-related osteoporosis without current pathological fracture (principal)
CPT/HCPCS: J0897

== ENCOUNTER → 2021-12-02 | Outpatient (CLI) | payer MEDICARE, BC | LOC: COL.RAD 14:35 | DX: M48.02 Spinal stenosis, cervical region (principal); M89.38 Hypertrophy of bone, other site; Z98.1 Arthrodesis status ==

== ENCOUNTER 2021-12-05 19:19 | Emergency (ER) | payer MEDICARE, BC ==
[~2021-12-05] VITALS: Ht 154.9 cm; Wt 59.1 kg
[2021-12-05 19:27] VITALS: TEMP 98.2
[2021-12-05 20:55] VITALS: BP 160/103; PULSE 67
== END 2021-12-05 20:55 | disposition home or self-care (01) ==
LOC: COL.ER 19:19
DX: F41.9 Anxiety disorder, unspecified (principal); J45.909 Unspecified asthma, uncomplicated; Z20.822 Contact with and (suspected) exposure to COVID-19; Z79.899 Other long term (current) drug therapy

== ENCOUNTER 2022-01-27 15:07 | Outpatient (CLI) | payer MEDICARE, BC ==
[~2022-01-27] VITALS: Ht 154.9 cm; Wt 61.4 kg
[2022-01-27 15:27] VITALS: BP 119/41; PULSE 64; TEMP 97.4
[2022-01-27] MEDS ORDERED: ALTACE 1.25MG1.25 MG PO (16:08)
[2022-01-27] MEDS ORDERED: VITAMIND3 5000 PO (16:09)
[2022-01-27] MEDS ORDERED: BENADRYL25 M2 PO (16:10)
[2022-01-27] MEDS ORDERED: ZYLOPRIM 300MG300 MG PO (16:10)
[2022-01-27] MEDS ORDERED: LIVALO4 MG PO (16:11)
[2022-01-27] MEDS ORDERED: BENTYL 10MG10 MG/CAP PO (16:12)
== END 2022-01-27 15:53 ==
LOC: EUO 15:07
DX: M81.0 Age-related osteoporosis without current pathological fracture (principal)
CPT/HCPCS: J0897

== ENCOUNTER 2022-04-24 06:31 | Day surgery (SDC) | payer MEDICARE, BC ==
[~2022-04-24 06:31] MED LIST changes: +ALTACE 1.25MG1.25 MG PO; +AMBIEN 10MG10 MG PO; +BENADRYL25 M2 PO; +VITAMIND3 5000 PO; +ZYLOPRIM 300MG300 MG PO
[2022-04-24 07:22] VITALS: BP 122/78; PULSE 65; TEMP 97.3
[2022-04-24 08:25] VITALS: BP 78/56; PULSE 64; TEMP 97.5
--- NOTE | 2022-04-24 08:25 | NUR ---
PT arrived from procedure, drowsy but oriented. PT assisted with ambulated from cart to bed, 2:1. Monitors applied and vitals obtained. PT BP is low; per report: PT had to be repositioned to increase BP during procedure, fluids opened; then titrated down via drip. PT oriented to room and call mederos, within reach. PT provided a warm muffin and OJ per request; son was brought in from the waiting room. Warm blankets applied.
[2022-04-24 08:40] VITALS: BP 86/59; PULSE 61
--- NOTE | 2022-04-24 08:41 | NUR ---
0840 Vitals obtained. BP has risen 10 points. PT remains alert and oriented. PT denies nausea and pain. PT expressed desire to be discharged home. Call mederos remains within reach.
--- NOTE | 2022-04-24 09:00 | NUR ---
0855 - PT expressed desire to be discharged, however her BP remains low; TOWER CLEANER notified and new orders recieved to have PT finish fluids to discharge. Call mederos remains within reach.
[2022-04-24 09:10] VITALS: BP 80/60; PULSE 64
--- NOTE | 2022-04-24 09:11 | NUR ---
0910 - Vitals obtained. Call mederos remains within reach. Visitor remains present.
[2022-04-24 09:30] VITALS: BP 82/51; PULSE 61
--- NOTE | 2022-04-24 09:42 | NUR ---
0930 PT has finished her IV fluids, and vitals obtained. DC instructions and educational material reviewed with the pt and her visitor, the PT verbalized understanding and signed the related paperwork. IV discontinued. Catheter tip intact and pressure bandage applied. NO redness or swelling noted. PT then stood independently and denied needing assistance changing into personal clothes. Visitor left to bring car to PT entrence. Call mederos remains within reach if needed.
--- NOTE | 2022-04-24 09:46 | NUR ---
PT dismissed from endo via wheelchair to PT entrence by an RN, PT has DC packet and personal belongings and was transferred into the car of her grandson who is driving private car.
== END 2022-04-24 09:47 | disposition home or self-care (01) ==
LOC: SDCO 06:31
DX: Z12.11 Encounter for screening for malignant neoplasm of colon (principal); K63.5 Polyp of colon; E11.9 Type 2 diabetes mellitus without complications; I10 Essential (primary) hypertension; Z95.0 Presence of cardiac pacemaker; G47.33 Obstructive sleep apnea (adult) (pediatric); Z79.82 Long term (current) use of aspirin; Z79.84 Long term (current) use of oral hypoglycemic drugs; Z79.51 Long term (current) use of inhaled steroids; Z87.891 Personal history of nicotine dependence
CPT/HCPCS: J2704; J7030

== ENCOUNTER 2022-05-03 19:45 | Emergency (ER) | payer MEDICARE, BC ==
[~2022-05-03] VITALS: Ht 152.4 cm; Wt 59.1 kg
[2022-05-03 19:53] VITALS: TEMP 97.9
[2022-05-03] MEDS ORDERED: FLEXERIL 1010 MG/TAB PO (21:05)
[2022-05-03 21:45] VITALS: BP 150/72; PULSE 68
== END 2022-05-03 21:45 | disposition home or self-care (01) ==
LOC: COL.ER 19:45
DX: S39.012A Strain of muscle, fascia and tendon of lower back, initial encounter (principal); Z87.891 Personal history of nicotine dependence; X50.1XXA Overexertion from prolonged static or awkward postures, initial encounter
CPT/HCPCS: J1885; J2360

== ENCOUNTER 2022-07-13 10:33 | Emergency (ER) | payer MEDICARE, BC ==
[~2022-07-13] VITALS: Ht 154.9 cm; Wt 59.1 kg
[~2022-07-13 10:33] MED LIST changes: +FLEXERIL 1010 MG/TAB PO
[2022-07-13 10:59] VITALS: TEMP 98.3
[2022-07-13 14:20] VITALS: BP 137/74; PULSE 60
--- NOTE | 2022-07-13 16:19 | NUR ---
matrix worker consulted after family expressed that they do not feel like the patient is safe to discharge home and would like her admitted for pain management in a "controlled environment". Upon entry, patient is awake but quickly falls asleep while i talk with her daughter Mony at bedside. Mony has her sister Adali on facetime. Adali reports that she is a nurse manager of case management and expressed strong feelings about the patient not being safe enough to return home and that the "best thing for the patient is skilled therapy" . She states that the patient is either living in pain or is taking to many medications and is "out of it". Per Adali, patient had a LSP fracture in late April and follows Dr. Robert Zheng, neurosurgery at [facility] in . BRANDEE discussed with the family that at this time, she does not meet inpatient critera and if we were to admit her it would be OBS. Educated them that if she was to admit to OBS she would not meet her 3 midnights and her SNF stay would be private pay. Also educated them that home with home health or home health plus private duty caregivers are an option as well. BRANDEE informed ED physician on the above. Will attempt a PT eval in the morning.
== END 2022-07-13 14:20 | disposition other institution (70) ==
LOC: COL.ER 10:33
DX: M54.16 Radiculopathy, lumbar region (principal); Z87.891 Personal history of nicotine dependence; Z98.890 Other specified postprocedural states; Z79.899 Other long term (current) drug therapy
CPT/HCPCS: J2270

== ENCOUNTER 2023-03-04 14:26 | Outpatient (CLI) | payer MEDICARE, BC ==
[2023-03-04 14:17] VITALS: BP 118/68; PULSE 70; TEMP 98
[2023-03-04] MEDS ORDERED: PROLIA60 MG/ML SQ (14:27)
--- NOTE | 2023-03-04 14:35 | NUR ---
Pt tolerated prolia well. She is escorted out to elevator with steady gait.
== END 2023-03-04 14:35 | disposition home or self-care (01) ==
LOC: EUO 14:26
DX: M81.0 Age-related osteoporosis without current pathological fracture (principal)
CPT/HCPCS: J0897

== ENCOUNTER 2024-08-26 10:27 | Emergency (ER) | payer MEDICARE, BC ==
[~2024-08-26] VITALS: Ht 154.9 cm; Wt 55.9 kg
[~2024-08-26 10:27] MED LIST changes: +CRESTOR5 MG PO; +PROLIA60 MG/ML SQ
[2024-08-26 10:33] VITALS: BP 91/73; TEMP 97.9
[2024-08-26] MEDS ORDERED: PREDNISONE50 MG PO (12:44)
[2024-08-26] MEDS ORDERED: VALIUM 5MG T5 MG/TAB PO (12:44)
[2024-08-26] MEDS ORDERED: LIDODERM 5% PATC1 EA TP (12:44)
[2024-08-26 13:00] VITALS: PULSE 69
== END 2024-08-26 13:00 | disposition home or self-care (01) ==
LOC: COL.ER 10:27
DX: M54.50 Low back pain, unspecified (principal)
CPT/HCPCS: J3360

== ENCOUNTER → 2024-09-01 | Outpatient (CLI) | payer MEDICARE, BC ==
[~2024-09-01] MED LIST changes: +LIDODERM 5% PATC1 EA TP; +PREDNISONE50 MG PO; +VALIUM 5MG T5 MG/TAB PO
== END ==
LOC: COL.RAD 09:37
DX: M47.816 Spondylosis without myelopathy or radiculopathy, lumbar region (principal); M41.86 Other forms of scoliosis, lumbar region

== ENCOUNTER 2024-10-05 11:56 | Emergency (ER) | payer MEDICARE, BC ==
[~2024-10-05] VITALS: Ht 154.9 cm; Wt 54.5 kg
[~2024-10-05 11:56] MED LIST changes: +MEDROL 4MG DOSPA4 MG PO; +PERCOCET 325 MG1 TA3 PO
[2024-10-05 12:08] VITALS: TEMP 97.5
[2024-10-05] MEDS ORDERED: FLEXERIL 1010 MG/TAB PO (13:14)
[2024-10-05] MEDS ORDERED: PERCOCET 325 MG1 TA2 PO (13:14)
[2024-10-05] MEDS ORDERED: PREDNISONE50 MG PO (13:14)
[2024-10-05] MEDS ORDERED: predniSONE 10 MG TAB PO ONE (13:15)
[2024-10-05] MEDS ORDERED: Home oxyCODONE/Acetaminophen 5/325 MG #4 TAB/PACK PO ONE ×2 (13:15)
[2024-10-05] MEDS ORDERED: HYDROmorphone 0.5 MG/0.5 ML SYRINGE IM ONE (13:15)
[2024-10-05] MEDS ORDERED: Home Cyclobenzaprine 10 MG #2 TABS/PACK PO ONE (13:15)
[2024-10-05 13:55] VITALS: BP 184/93; PULSE 73
== END 2024-10-05 13:55 | disposition home or self-care (01) ==
LOC: COL.ER 11:56
DX: M54.32 Sciatica, left side (principal); Z87.891 Personal history of nicotine dependence; Z95.5 Presence of coronary angioplasty implant and graft
CPT/HCPCS: J1171; J7512

== ENCOUNTER 2024-10-11 10:48 | Emergency (ER) | payer MEDICARE, BC ==
[~2024-10-11] VITALS: Ht 154.9 cm; Wt 54.5 kg
[~2024-10-11 10:48] MED LIST changes: +PERCOCET 325 MG1 TA2 PO
[2024-10-11 10:57] VITALS: BP 123/76; PULSE 80; TEMP 97.4
[2024-10-11] MEDS ORDERED: HYDROmorphone 0.5 MG/0.5 ML SYRINGE IM ONE (11:30)
[2024-10-11] MEDS ORDERED: PERCOCET 325 MG1 TAB PO (11:35)
[2024-10-16] MEDS ORDERED: DAZIDOX10 MG PO (14:44)
== END 2024-10-11 11:48 | disposition home or self-care (01) ==
LOC: COL.ER 10:48
DX: M54.32 Sciatica, left side (principal); Z79.891 Long term (current) use of opiate analgesic
CPT/HCPCS: J1171